=== PATIENT | male | born 1995 | race Caucasian/White ===

== ENCOUNTER 2024-04-26 19:26 | Emergency (ER) | payer SELFPAY ==
[~2024-04-26] VITALS: Ht 182.9 cm; Wt 63.5 kg
[~2024-04-26 19:26] MED LIST: ALBU17AE26 IH
[2024-04-26 19:32] VITALS: BP_SYST 130; PULSE 81; RESP 16; TEMP 98; O2SAT 100
[2024-04-26] MEDS: ONDANSETRON HCL 4 MG/2 ML VIAL IVP ONE (20:00)
[2024-04-26 20:05] VITALS: BP_SYST 132; PULSE 81; RESP 16; TEMP 98; O2SAT 98
[2024-04-26] MEDS: GLUCAGON,HUMAN RECOMBINANT 1 MG VIAL IVP ONE (20:17)
[2024-04-26] MEDS: LORazepam 2 MG/ML VIAL IVP ONE (21:08)
== END 2024-04-26 21:55 | disposition left against medical advice (07) ==
LOC: SED 19:26
DX: T18.128A Food in esophagus causing other injury, initial encounter (principal); J45.909 Unspecified asthma, uncomplicated; Z88.0 Allergy status to penicillin; Z91.010 Allergy to peanuts; Z79.899 Other long term (current) drug therapy; W44.F3XA Food entering into or through a natural orifice, initial encounter; Y93.89 Activity, other specified; Y92.89 Other specified places as the place of occurrence of the external cause; Y99.8 Other external cause status
CPT/HCPCS: 99284; 96374; 96375; J1610; J2060; J2405